=== PATIENT | female | born 1985 | race Caucasian/White ===

== ENCOUNTER → 2019-10-26 13:16 | Outpatient (CLI) | payer OTHER, SELFPAY ==
[2019-10-26 11:08] VITALS: BMI 32.1
[2019-10-30 14:54] LABS: HPV APTIMA, High Risk Negative (Negative)
== END ==
PROVIDERS: Family Provider Family Medicine; PCP Family Medicine; Referring Provider Obstetrics & Gynecology; Visit Provider Obstetrics & Gynecology
DX: Z12.4 Encounter for screening for malignant neoplasm of cervix (principal)
CPT/HCPCS: 87624; 88175; G0145

== ENCOUNTER 2021-12-06 09:05 | Outpatient (CLI) | payer OTHER, SELFPAY ==
--- NOTE | 2021-12-06 09:07 | BI_ITS ---
MAMMOGRAPHY - BILATERAL DIAGNOSTIC REASON FOR EXAM: Female, 36 years old. Bilateral nipple discharge. PERTINENT HISTORY: Non-contributory. TECHNIQUE: Digital bilateral breast shakira (3D mammographic acquisition) in the CC and MLO projections. 2-D mediolateral oblique (MLO) and craniocaudad (CC) views of both breasts were obtained. CAD: Full Field Digital Mammography with Computer Added Detection was performed. COMPARISON: None. Baseline examination. FINDINGS: Breast Composition: The breasts are extremely dense, which lowers the sensitivity of mammography. There are no dominant masses or suspicious calcifications. No other significant abnormalities are identified. BI/DIAG MAMM W/CAD, BILAT IMPRESSION: Negative diagnostic mammogram. With the patient''s history of bilateral nipple discharge, correlation with ultrasound is recommended. ASSESSMENT CATEGORY: BIRADS Category 0: Incomplete. Need additional imaging evaluation. A letter regarding these results will be sent to the patient by the facility within 30 days. Approximately 10% of breast cancers are not detected by mammography. A normal mammogram should not delay biopsy of a clinically suspicious abnormality. Electronically Signed: Brendan Tierney MD at 10:06 [facility] ,
--- NOTE | 2021-12-06 09:07 | US_ITS ---
STUDY: ULTRASOUND BREAST - RIGHT REASON FOR EXAM: Female, 36 years old. Nipple discharge in the right breast. TECHNIQUE: Axial and longitudinal images of the RIGHT breast were performed with a high resolution ultrasound transducer. # OF IMAGES: 31 COMPARISON: Comparison is made with prior mammogram done earlier in the day. FINDINGS: RIGHT Breast: The retroareolar region was examined by ultrasound. No sonographic abnormality is seen. IMPRESSION: No sonographic abnormality is seen. ASSESSMENT CATEGORY: BIRADS Category 1: Negative. A letter regarding these results will be sent to the patient by the facility within 30 days. Electronically Signed: Brendan Tierney MD at 10:33 EST , STUDY: ULTRASOUND BREAST - LEFT REASON FOR EXAM: Female, 36 years old. Nipple discharge in the left breast. TECHNIQUE: Axial and longitudinal images of the LEFT breast were performed with a high resolution ultrasound transducer. # OF IMAGES: 31 COMPARISON: Comparison is made with prior mammogram done earlier today. FINDINGS: LEFT Breast: There is a 6 mm x 6 mm x 3 mm cyst at the 9 o''clock position of the breast in the retroareolar region. US/Breast Limited Unilateral IMPRESSION: 6 mm x 6 mm x 3 mm cyst in the retroareolar region. ASSESSMENT CATEGORY: BIRADS Category 2: Benign. A letter regarding these results will be sent to the patient by the facility within 30 days. Electronically Signed: Brendan Tierney MD at 10:34 EST ,
[2021-12-06 09:30] LABS: Vitamin D,25 Hydroxy 37.3 ng/mL
[2021-12-06 09:35] LABS: Cholesterol 147 mg/dL (200); Glucose 84 mg/dL (74-106); High Density Lipoprotein 38 mg/dL; Prolactin 6.2 ng/mL; Thyroid Stim Hormone (TSH) 1.49 uIU/mL (0.358-3.74); Triglycerides 50 mg/dL; Very Low Density Lipoprotein 10 mg/dL (5-40)
== END 2021-12-06 23:59 | disposition home or self-care (01) ==
PROVIDERS: PCP Family Medicine; Referring Provider Obstetrics & Gynecology; Visit Provider Obstetrics & Gynecology
DX: Z01.419 Encounter for gynecological examination (general) (routine) without abnormal findings (principal); N64.3 Galactorrhea not associated with childbirth
CPT/HCPCS: 36415; 76642; 77062; 77066; 80061; 82306; 82947; 84146; 84443; G0279

== ENCOUNTER → 2024-12-30 | Outpatient (CLI) | payer OTHER, SELFPAY ==
[2024-12-30 16:28] LABS: Hepatitis B Surface Antigen Nonreactive (Nonreactive); Syphilis Antibodies Nonreactive (Nonreactive)
[2024-12-30 20:30] LABS: HIV Nonreactive (Nonreactive)
[2025-01-02 21:07] LABS: HCV Quant. RNA PCR HCV Not Detected IU/mL (.)
[2025-01-03 06:08] LABS: Chlamydia By Nucleic Acid AMP Negative (Negative); Gonococcus By Nucleic Acid AMP Negative (Negative)
[2025-01-06 13:08] LABS: HPV APTIMA, High Risk Negative (Negative)
== END | disposition home or self-care (01) ==
PROVIDERS: PCP Family Medicine; Referring Provider Obstetrics & Gynecology; Visit Provider Obstetrics & Gynecology
DX: Z11.3 Encounter for screening for infections with a predominantly sexual mode of transmission (principal); N64.3 Galactorrhea not associated with childbirth; Z12.4 Encounter for screening for malignant neoplasm of cervix
CPT/HCPCS: 36415; 84146; 86695; 86696; 86703; 86780; 87340; 87491; 87522; 87591; 87624; 88175; G0145

== ENCOUNTER → 2025-01-23 | Outpatient (CLI) | payer OTHER, SELFPAY ==
--- NOTE | 2025-01-23 07:45 | BI_ITS ---
EXAM: SCRN MAMM (CAD)W/DANTE BILAT DATE: 01/23/2025 CLINICAL HISTORY: F, Age 39 y/o , SCREENING MAMMOGRAM BREAST CANCER RISK ASSESSMENT: Has not been calculated. TECHNIQUE: Bilateral screening digital breast tomosynthesis with 2D and 3D images. Computer aided detection. COMPARISON: Prior exam(s) dated 12/06/2021. FINDINGS: TISSUE DENSITY: The breast tissue is extremely dense which lowers the sensitivity of mammography. Bilateral Breast Mammographic Findings: There are no suspicious masses, suspicious clustered microcalcifications, architectural distortion or secondary signs of malignancy identified in either breast. Benign round calcifications are seen in both breasts. BI/SCRN MAMM (CAD)W/DANTE BILAT IMPRESSION: Right Breast: BIRADS 2 BENIGN FINDING. Left Breast: BIRADS 2 BENIGN FINDING. OVERALL FINAL ASSESSMENT: BIRADS 2 BENIGN FINDING RECOMMENDATION: Routine annual follow-up in 1 Year A letter with findings and recommendations will be mailed to the patient. Reading Location: [id number]
== END | disposition home or self-care (01) ==
LOC: OPBI 07:56
PROVIDERS: PCP Family Medicine; Referring Provider Obstetrics & Gynecology; Visit Provider Obstetrics & Gynecology
DX: Z12.31 Encounter for screening mammogram for malignant neoplasm of breast (principal)
CPT/HCPCS: 77063; 77067